=== PATIENT | female | born 1955 | race Caucasian/White ===

== ENCOUNTER → 2016-04-21 | Outpatient (CLI) | payer BC ==
--- NOTE | 2016-04-21 16:49 | MR ---
EXAMINATION TYPE: MR brain wo/w con DATE OF EXAM: 04/21/2016 3:41 PM COMPARISON: NONE HISTORY: Headache, Nausea, and Dizziness all per order. TECHNIQUE: Multiplanar, multisequence images of the brain and brainstem is performed without and with IV contras t, utilizing 10 mL intravenous MultiHance . FINDINGS: Diffusion weighted images demonstrate no evidence of a recent infarct or other diffusion ab normality. There is no extra-axial fluid collection or significant white matter signal abnormality. The ventricular system and cisternal spaces are normal in size and appearance. The brain volume is age appropriate. Midline structures demonstrate normal morphology. The craniocervical junction appears within normal limits. Post contrast images demonstrate no abnormal enhancement. The dural venous sinuses appear pa tent. The visualized sinuses are clear and the globes are intact. IMPRESSION: Unremarkable study. No significant finding is seen to account for patient's symptoms.
== END | disposition home or self-care (01) ==
LOC: RADMRIMAIN 14:33
PROVIDERS: ATTEND Physician Assistant
DX: R51 Headache (principal); R42 Dizziness and giddiness; R11.0 Nausea
CPT/HCPCS: 70553; A9577

== ENCOUNTER → 2017-04-26 | Outpatient (CLI) | payer BC ==
--- NOTE | 2017-04-26 17:59 | CT ---
EXAMINATION TYPE: CT abdomen pelvis w con DATE OF EXAM: 04/26/2017 COMPARISON: NONE HISTORY: Right sided Abdominal discomfort CT DLP: 345.3 mGycm Automated exposure control for dose reduction was used. TECHNIQUE: Helical acquisition of images was performed from the lung bases through the pelvis. CONTRAST: Performed with Oral Contrast and with IV Contrast, patient injected with 100 mL of Omnipaque 300. FINDINGS: Lung bases are clear. There is no pleural effusion. Liver spleen pancreas appear normal. There are cl ips from cholecystectomy. Bile ducts are not dilated. There is no adrenal mass. Kidneys show satisfac tory contrast opacification. There is no hydronephrosis. There is no retroperitoneal adenopathy. Ther e is no ascites. Appendix appears normal. There is incomplete contrast filling of the cecum and the a scending colon. There are no dilated loops. Bladder distends smoothly. There is no evidence of a pelv ic mass. I see no bony destructive process. IMPRESSION: There is incomplete oral contrast filling of the cecum. This could be fecal material but the possibil ity of a cecal infiltrative mass cannot be excluded. Follow-up is recommended. This could be further evaluated with colonoscopy or barium enema exam if clinically indicated.
== END ==
LOC: RADCTMAIN 15:43
PROVIDERS: ATTEND Family Medicine
DX: K57.32 Diverticulitis of large intestine without perforation or abscess without bleeding (principal)
CPT/HCPCS: 74177; Q9967

== ENCOUNTER → 2017-08-13 | Outpatient (CLI) | payer BC ==
[2017-08-13 13:29] LABS: T4, Free (Free Thyroxine) 1.23 ng/dL (0.78-2.19)
== END | disposition home or self-care (01) ==
LOC: LABWHC1 12:07
PROVIDERS: ATTEND Physician Assistant
DX: L67.9 Hair color and hair shaft abnormality, unspecified (principal)
CPT/HCPCS: 36415; 84439; 84443; 84480